=== PATIENT | male | born 1985 | race Two or more races ===

== ENCOUNTER 2020-06-26 16:18 | Emergency (ER) | payer MEDICAID, OTHER ==
[~2020-06-26] VITALS: Ht 165.1 cm; Wt 70.5 kg
[~2020-06-26 16:18] MED LIST: BENZ7GEL6; CLIN150C2 PO; DIVA-37 PO; DIVA-52; HALO50AM2 IM; IBUP-1984 PO; QUET-1 PO
[2020-06-26 16:48] VITALS: BP 108/53
== END 2020-06-26 18:25 | disposition home or self-care (01) ==
LOC: ER 16:18
DX: R42 Dizziness and giddiness (principal); I10 Essential (primary) hypertension; G89.29 Other chronic pain; F31.9 Bipolar disorder, unspecified; F20.9 Schizophrenia, unspecified; G47.30 Sleep apnea, unspecified; F15.90 Other stimulant use, unspecified, uncomplicated; Z60.2 Problems related to living alone; Z59.0 Homelessness; Z56.0 Unemployment, unspecified; Z79.899 Other long term (current) drug therapy
CPT/HCPCS: 99281

== ENCOUNTER 2020-07-31 05:59 | Emergency (ER) | payer MEDICAID ==
[~2020-07-31] VITALS: Ht 167.6 cm; Wt 75.0 kg
[2020-07-31 06:00] VITALS: BP 109/68
[2020-07-31] MEDS ORDERED: acetaminophen 325mg tablet PO ONE (06:50)
== END 2020-07-31 07:11 | disposition home or self-care (01) ==
LOC: ER 05:59
DX: M25.69 Stiffness of other specified joint, not elsewhere classified (principal); I10 Essential (primary) hypertension; G89.29 Other chronic pain; F31.9 Bipolar disorder, unspecified; F20.9 Schizophrenia, unspecified; F12.90 Cannabis use, unspecified, uncomplicated; F15.90 Other stimulant use, unspecified, uncomplicated; F11.90 Opioid use, unspecified, uncomplicated; Z72.89 Other problems related to lifestyle; Z60.2 Problems related to living alone; Z59.0 Homelessness; Z56.0 Unemployment, unspecified; Z79.899 Other long term (current) drug therapy; Z79.2 Long term (current) use of antibiotics
CPT/HCPCS: 99282; 99283

== ENCOUNTER 2020-08-01 03:24 | Emergency (ER) | payer MEDICAID ==
[~2020-08-01] VITALS: Ht 167.6 cm; Wt 72.7 kg
[2020-08-01 03:27] VITALS: BP 107/46
--- NOTE | 2020-08-01 04:19 | NUR ---
Dylan salazar in [facility] - 08/01/20 at 0419 by GENEVIEVE he is arguing with the MD about him being homeless, it is cold out
== END 2020-08-01 04:27 | disposition home or self-care (01) ==
LOC: ER 03:25
DX: S00.81XA Abrasion of other part of head, initial encounter (principal); I10 Essential (primary) hypertension; G89.29 Other chronic pain; F31.9 Bipolar disorder, unspecified; F20.9 Schizophrenia, unspecified; F12.90 Cannabis use, unspecified, uncomplicated; F15.90 Other stimulant use, unspecified, uncomplicated; F11.90 Opioid use, unspecified, uncomplicated; Z72.89 Other problems related to lifestyle; Z60.2 Problems related to living alone; Z56.0 Unemployment, unspecified; Z59.0 Homelessness; Z79.2 Long term (current) use of antibiotics; Z79.899 Other long term (current) drug therapy; X58.XXXA Exposure to other specified factors, initial encounter; Y93.89 Activity, other specified; Y92.89 Other specified places as the place of occurrence of the external cause; Y99.8 Other external cause status
CPT/HCPCS: 99281

== ENCOUNTER 2020-08-30 13:39 | Emergency (ER) | payer MEDICAID ==
[~2020-08-30] VITALS: Ht 167.6 cm; Wt 75.0 kg
[2020-08-30 14:29] VITALS: BP 137/76
== END 2020-08-30 14:37 | disposition home or self-care (01) ==
LOC: ER 13:39
DX: Z20.828 Contact with and (suspected) exposure to other viral communicable diseases (principal); I10 Essential (primary) hypertension; G89.29 Other chronic pain; F31.9 Bipolar disorder, unspecified; F20.9 Schizophrenia, unspecified; F12.90 Cannabis use, unspecified, uncomplicated; F15.90 Other stimulant use, unspecified, uncomplicated; F11.90 Opioid use, unspecified, uncomplicated; Z72.89 Other problems related to lifestyle; Z60.2 Problems related to living alone; Z56.0 Unemployment, unspecified; Z59.0 Homelessness; Z79.2 Long term (current) use of antibiotics; Z79.899 Other long term (current) drug therapy
CPT/HCPCS: 36415; 87635; 99283

== ENCOUNTER 2020-09-08 17:51 | Emergency (ER) | payer MEDICAID ==
[~2020-09-08] VITALS: Ht 167.6 cm; Wt 71.3 kg
[2020-09-08 17:59] VITALS: BP 131/60
== END 2020-09-08 19:20 | disposition home or self-care (01) ==
LOC: ER 17:52
DX: T69.022A Immersion foot, left foot, initial encounter (principal); T69.021A Immersion foot, right foot, initial encounter; I10 Essential (primary) hypertension; G89.29 Other chronic pain; M54.9 Dorsalgia, unspecified; F31.9 Bipolar disorder, unspecified; F20.9 Schizophrenia, unspecified; F17.200 Nicotine dependence, unspecified, uncomplicated; F12.10 Cannabis abuse, uncomplicated; F15.10 Other stimulant abuse, uncomplicated; Z56.0 Unemployment, unspecified; Z59.0 Homelessness; Z79.899 Other long term (current) drug therapy
CPT/HCPCS: 99281; 99283

== ENCOUNTER 2020-09-15 12:20 | Emergency (ER) | payer MEDICAID ==
[~2020-09-15] VITALS: Ht 167.6 cm; Wt 75.0 kg
[2020-09-15 14:37] VITALS: BP 141/64
== END 2020-09-15 14:47 | disposition home or self-care (01) ==
LOC: ER 12:20
DX: F15.10 Other stimulant abuse, uncomplicated (principal); F10.10 Alcohol abuse, uncomplicated; I10 Essential (primary) hypertension; G89.29 Other chronic pain; G47.30 Sleep apnea, unspecified; F12.90 Cannabis use, unspecified, uncomplicated; Z56.0 Unemployment, unspecified; Z59.0 Homelessness; Z72.89 Other problems related to lifestyle; Z79.2 Long term (current) use of antibiotics; Z79.899 Other long term (current) drug therapy
CPT/HCPCS: 36415; 84484; 93005; 99284

== ENCOUNTER 2020-10-07 12:14 | Inpatient (IN) | payer MEDICAID ==
[~2020-10-07] VITALS: Ht 167.6 cm; Wt 68.0 kg
[2020-10-07] VITALS (10 sets, daily range): BP systolic 109–164; BP diastolic 69–107
[2020-10-07] MEDS ORDERED: morphine 4 MG/ML inj SYRINge IV STA (12:36)
[2020-10-07] MEDS ORDERED: morphine 4 MG/ML inj SYRINge ONE (12:37)
[2020-10-07] MEDS ORDERED: ondansetron/PF 4mg/2ml inj IV STA (12:38)
[2020-10-07] MEDS ORDERED: TETanus/Pertussis (Acell)/Diphther VAC/PF (Tdap-Adult) 0.5ml syringe IMVAC ONE (12:45)
[2020-10-07] MEDS ORDERED: normal saline 1000ML IV soln IVB ONE (12:45)
[2020-10-07] MEDS ORDERED: ceFAZolin 1GM/D5W- ADD-VANTAGE 50 ML IV ONE (12:45)
[2020-10-07] MEDS ORDERED: ceFAZolin/D5W- 1GM premix 50 ML IV ONE (12:50)
--- NOTE | 2020-10-07 12:54 | NUR ---
pt to ct.
[2020-10-07 13:01] LABS: BASOPHILS # (AUTO) 0.1 X10'3 (0-0.2); BASOPHILS % (AUTO) 0.7 % (0-1); EOSINOPHILS # (AUTO) 0.1 X10'3 (0-0.9); EOSINOPHILS % (AUTO) 1.3 % (0-6); HEMATOCRIT 38.4 % (42.0-52.0); LYMPHOCYTES # (AUTO) 2.9 X10'3 (1.1-4.8); LYMPHOCYTES % (AUTO) 35.8 % (21-51); MEAN CORPUSCULAR HEMOGLOBIN 33.8 PG (27.0-31.0); MEAN CORPUSCULAR HGB CONC 33.8 g/dL (33.0-36.5); MEAN PLATELET VOLUME 7.5 FL (7.4-10.4); MONOCYTES # (AUTO) 0.6 X10'3 (0-0.9); MONOCYTES % (AUTO) 7.2 % (2-12); NEUTROPHILS # (AUTO) 4.4 X10'3 (1.8-7.7); PLATELET COUNT 267 X10'3 (140-440); RED BLOOD COUNT 3.84 X10'6 (4.70-6.10); RED CELL DISTRIBUTION WIDTH 13.2 % (11.5-14.5); WHITE BLOOD COUNT 8.1 X10'3 (4.5-11.0)
[2020-10-07 13:08] LABS: PARTIAL THROMBOPLASTIN TIME 25 SECONDS (22-32)
[2020-10-07 13:10] LABS: ALANINE AMINOTRANSFERASE 32 U/L (12-78); ALBUMIN 3.5 G/DL (3.4-5.0); ALKALINE PHOSPHATASE 97 IU/L (46-116); ANION GAP 9 (8-16); ASPARTATE AMINO TRANSFERASE 30 U/L (10-37); BILIRUBIN,TOTAL 0.3 MG/DL (0.1-1.0); BLOOD UREA NITROGEN 18 MG/DL (7-18); BUN/CREATININE RATIO 19.1 (5.4-32.0); CALCIUM 8.7 MG/DL (8.5-10.1); CHLORIDE 106 MMOL/L (99-107); CREATININE 0.94 MG/DL (0.60-1.10); GLUCOSE 125 MG/DL (70-104); POTASSIUM 3.7 MMOL/L (3.5-5.1); SODIUM 142 MMOL/L (135-145); TOTAL PROTEIN 7.1 G/DL (6.4-8.2); eGFR > 90 ML/MIN
[2020-10-07] MEDS ORDERED: vancomycin/NS 1 GM ADD-VANTAGE 250 ML IV ONE (13:10)
[2020-10-07] MEDS ORDERED: etomidate 2mg/ml inj. IV ONE (13:10)
[2020-10-07 13:11] LABS: ETHANOL < 0.010 GM/DL (0.0-0.010)
--- NOTE | 2020-10-07 14:43 | NUR ---
Pt. refused TDaP due to "I had that shot this year already"
[2020-10-07] MEDS ORDERED: acetaminophen 325mg tablet PO PRN (15:00)
[2020-10-07] MEDS ORDERED: potassium Cl 20 mEq SR tablet PO PRN ×2 (15:00)
[2020-10-07] MEDS ORDERED: potassium Cl 40MEQ/1/2NS 520ml 520 ML IV PRN ×2 (15:00)
[2020-10-07] MEDS ORDERED: mag hydrox/Alum hydrox/simeth 30ml oral suspension PO PRN (15:00)
[2020-10-07] MEDS ORDERED: magnesium 2GM in 50ml NS 50 ML IV PRN (15:00)
[2020-10-07] MEDS ORDERED: magnesium 4gm in 100ml NS 100 ML IV PRN (15:00)
[2020-10-07] MEDS ORDERED: magnesium hydroxide 30ml (MOM) UD suspension PO PRN (15:00)
[2020-10-07] MEDS ORDERED: ondansetron/PF 4mg/2ml inj IV PRN ×2 (15:00→20:30)
--- NOTE | 2020-10-07 15:19 | NUR ---
Pt. is requesting feng catheter not be placed until he is getting ready to go to surgery. Pt. is able to use urinal without excessive motion of his injured leg.
[2020-10-07 15:33] LABS: CLARITY,URINE CLEAR (Clear); COLOR,URINE YELLOW (Yellow); GLUCOSE, URINE NEGATIVE (Neg); KETONES,URINE NEGATIVE (Neg); LEUKOCYTE ESTERASE ,URINE NEGATIVE (Neg); NITRITES, URINE NEGATIVE (Neg); OCCULT BLOOD,URINE NEGATIVE (Neg); PROTEIN,URINE NEGATIVE (Neg); UROBILINOGEN,URINE 0.2 E.U/dL (0.2-1.0)
[2020-10-07] MEDS ORDERED: LIDOcaine Viscous 15ml cup MM PRN (15:35)
[2020-10-07 15:39] LABS: UA COLLECTION TYPE NON-SPECIFIED; URINE AMPHETAMINE SCREEN NEGATIVE (Neg); URINE BARBITUATE SCREEN NEGATIVE (Neg); URINE BENZODIAZEPINES SCREEN NEGATIVE (Neg); URINE CANNABINOID SCREEN POSITIVE (Neg); URINE COCAINE SCREEN NEGATIVE (Neg); URINE METHADONE SCREEN NEGATIVE (Neg); URINE OPIATE SCREEN POSITIVE (Neg); URINE PHENCYCLIDINE SCREEN NEGATIVE (Neg)
[2020-10-07] MEDS: LIDOcaine 2% 10ml TOPICAL JELLY (Urojet) MM ONE ×2 (15:43→16:05)
[2020-10-07] MEDS: morphine 2 MG/ML inj. syringe IV PRN (15:49)
[2020-10-07] MEDS ORDERED: haloperidol 5mg tablet PO PRN (15:50)
[2020-10-07] MEDS ORDERED: haloperidol lactate 5mg/ml inj IM PRN (15:50)
[2020-10-07] MEDS: normal saline 1000ml 1,000 ML IV SCH (15:55)
[2020-10-07] MEDS ORDERED: VANCOmycin 1250MG/NS 250ml Bag 250 ML IV SCH (16:00)
[2020-10-07] MEDS ORDERED: NO HOME MEDS (16:05)
[2020-10-07] MEDS ORDERED: hydrALAZINE 20mg/ml inj. IV PRN (16:15)
[2020-10-07] MEDS ORDERED: ziprasidone IM 20mg inj **IM only IM PRN (16:15)
--- NOTE | 2020-10-07 16:50 | NUR ---
MICHELLE CATH PLACED,PATIENT TOLERATED WELL.URINE SENT TO THE LAB.
[2020-10-07] MEDS: nicotine 21mg patch - 24 hr TD SCH (16:56)
--- NOTE | 2020-10-07 17:46 | NUR ---
CALLED OR SPOKE TO RENETTA SIMONS,PATIENT GOING TO SURGERY TONIGHT BUT NO SCHEDULED TIME YET.
[2020-10-07] MEDS: LORazepam 2 mg/ml vial IV PRN (17:59)
--- NOTE | 2020-10-07 18:34 | NUR ---
Received report from KRISTYN Edwards. Awaiting arrival to the floor.
[2020-10-07] MEDS ORDERED: famotidine/PF 10 mg/ml inj IV ONE (18:50)
[2020-10-07] MEDS ORDERED: BUPIVAcaine/PF 2.5 mg/ml (0.25%) 30ml vial ONE (19:33)
--- NOTE | 2020-10-07 19:43 | NUR ---
Taken to OR
[2020-10-07] MEDS: K and/or MAG REPLACEMENT MC SCH (20:00)
[2020-10-07] MEDS ORDERED: sevoflurane 250ml liquid IH ONE (20:28)
[2020-10-07] MEDS ORDERED: morphine 4 MG/ML inj SYRINge IV PRN (20:30)
[2020-10-07] MEDS ORDERED: meperidine/PF 25mg/ml syringe IV PRN ×3 (20:30)
[2020-10-07] MEDS ORDERED: ringers solution, lacted 1,000 ML IV SCH (20:30)
[2020-10-07] MEDS ORDERED: proCHLORperazine 10 MG/2 ml inj IV PRN (20:30)
[2020-10-07] MEDS ORDERED: morphine 2 MG/ML inj. syringe IV PRN (20:30)
[2020-10-07] MEDS ORDERED: propofol inj 20 ML IV ONE (20:34)
[2020-10-07] MEDS ORDERED: fentaNYL/PF 50MCG/1 ML 2ML syringe ONE ×2 (20:34→21:05)
[2020-10-07] MEDS ORDERED: vancomycin 1,000mg inj ONE (21:41)
[2020-10-07] MEDS ORDERED: bacitracin 15gm ointment TP ONE (21:59)
--- NOTE | 2020-10-07 22:20 | NUR ---
Received from OR via BED, accompanied by Anesthesiologist DR CAMARENA and report given by Anesthesiolgist. PATIENT SEDATED, NO S/S OF PAIN, V/S WNL, NEUROVASCULAR CHECKS INTACT, 20G PIV LUE, SCD ON, DRESSING SPLINT CAST TO LEFT ANKLE CDI ELEVATED WITH ICEBAG APPLIED. F/C DRAINING CLEAR YELLOW URINE.
--- NOTE | 2020-10-07 22:34 | NUR ---
Received report from KRISTYN Nielson. Awaiting patient arrival to the floor
--- NOTE | 2020-10-07 23:00 | NUR ---
PATIENT SLEEPY WAKES UP BUT HAS DIFFICULTY FOCUSING AND QUICKLY TRYS TO GO BACK TO SLEEP, WHICH WAS HIS MENTATION PRIOR TO SURGERY AFTER COMING TO OR FROM ER WHERE HE WAS GIVEN PSYCH MEDS., NO S/S OF PAIN, V/S WNL, NEUROVASCULAR CHECKS INTACT, 20G PIV LUE, SCD ON, DRESSING SPLINT CAST TO LEFT ANKLE CDI ELEVATED WITH ICEBAG APPLIED. F/C DRAINING CLEAR YELLOW URINE. PATIENT TAKEN TO 358A WITH ALL BELONGINGS AND HOOKED UP TO MONITORS IN ROOM AND REPORT GIVEN TO RN WHO HAS TAKEN OVER PATIENT CARE. BED LOW, CALL LIGHT IN REACH, VSS, DRESSINGS CDI.
[2020-10-07] MEDS: piperacillin/tazo 4.5gm/100ml 100 ML IV SCH (23:12)
[2020-10-07] MEDS: enoxaparin 40mg/0.4ml syringe SQ SCH (23:12)
[2020-10-07] MEDS: ceFAZolin/D5W- 1GM premix 50 ML IV SCH (23:31)
[2020-10-08] VITALS (8 sets, daily range): BP systolic 126–159; BP diastolic 81–101
[2020-10-08] MEDS: morphine 2 MG/ML inj. syringe IV PRN ×4 (00:21→17:11)
[2020-10-08] MEDS: normal saline 1000ml 1,000 ML IV SCH ×3 (02:01→20:08)
--- NOTE | 2020-10-08 02:28 | NUR ---
Patient refused blood glucose check at this time.
[2020-10-08] MEDS: LORazepam 2 mg/ml vial IV PRN (02:55)
[2020-10-08] MEDS: VANCOmycin 1250MG/NS 250ml Bag 250 ML IV SCH ×2 (03:59→14:36)
[2020-10-08 06:38] LABS: BASOPHILS % (AUTO) 0.3 % (0-1); EOSINOPHILS % (AUTO) 0.1 % (0-6); HEMATOCRIT 39.2 % (42.0-52.0); HEMOGLOBIN 13.3 g/dl (14.0-17.9); LYMPHOCYTES # (AUTO) 1.9 X10'3 (1.1-4.8); LYMPHOCYTES % (AUTO) 18.5 % (21-51); MEAN CORPUSCULAR HEMOGLOBIN 34.2 PG (27.0-31.0); MEAN CORPUSCULAR VOLUME 100.7 FL (78-98); MEAN PLATELET VOLUME 7.6 FL (7.4-10.4); MONOCYTES # (AUTO) 0.8 X10'3 (0-0.9); MONOCYTES % (AUTO) 7.4 % (2-12); NEUTROPHILS # (AUTO) 7.7 X10'3 (1.8-7.7); NEUTROPHILS % (AUTO) 73.7 % (42-75); PLATELET COUNT 237 X10'3 (140-440); RED BLOOD COUNT 3.89 X10'6 (4.70-6.10); RED CELL DISTRIBUTION WIDTH 13.5 % (11.5-14.5); WHITE BLOOD COUNT 10.4 X10'3 (4.5-11.0)
--- NOTE | 2020-10-08 06:41 | NUR ---
Problems reprioritized. Patient report given, questions answered & plan of care reviewed with KRISTYN Sterling.
[2020-10-08 07:11] LABS: ALANINE AMINOTRANSFERASE 30 U/L (12-78); ALBUMIN 3.5 G/DL (3.4-5.0); ALBUMIN/GLOBULIN RATIO 0.9 (1.1-1.5); ALKALINE PHOSPHATASE 80 IU/L (46-116); AMYLASE 67 U/L (25-115); ANION GAP 9 (8-16); ASPARTATE AMINO TRANSFERASE 23 U/L (10-37); BILIRUBIN,TOTAL 0.6 MG/DL (0.1-1.0); BLOOD UREA NITROGEN 6 MG/DL (7-18); BUN/CREATININE RATIO 8.1 (5.4-32.0); CALCIUM 8.5 MG/DL (8.5-10.1); CHLORIDE 100 MMOL/L (99-107); CREATININE 0.74 MG/DL (0.60-1.10); GLUCOSE 134 MG/DL (70-104); LIPASE < 50 U/L (73-393); MAGNESIUM 1.9 MG/DL (1.5-2.4); PHOSPHORUS 3.4 MG/DL (2.3-4.5); POTASSIUM 3.7 MMOL/L (3.5-5.1); SODIUM 135 MMOL/L (135-145); TOTAL CARBON DIOXIDE 25.6 MMOL/L (24-32); TOTAL PROTEIN 7.3 G/DL (6.4-8.2); eGFR > 90 ML/MIN
[2020-10-08] MEDS ORDERED: vancomycin/NS 1 GM ADD-VANTAGE 250 ML IV SCH (08:00)
[2020-10-08] MEDS: K and/or MAG REPLACEMENT MC SCH ×2 (08:00→20:00)
[2020-10-08] MEDS: ceFAZolin/D5W- 1GM premix 50 ML IV SCH ×2 (11:13→17:10)
[2020-10-08] MEDS: thiamine 100mg tablet PO SCH (11:16)
[2020-10-08] MEDS: multivitamins, therapeutics tablet PO SCH (11:16)
[2020-10-08] MEDS: folic acid 1mg tablet PO SCH (11:17)
[2020-10-08] MEDS: nicotine 21mg patch - 24 hr TD SCH (11:18)
[2020-10-08] MEDS: piperacillin/tazo 4.5gm/100ml 100 ML IV SCH ×2 (11:20→20:08)
[2020-10-08] MEDS ORDERED: ondansetron 4mg rapidly disintigrating tab PO PRN (13:20)
--- NOTE | 2020-10-08 17:00 | NUR ---
UNABLE TO OBTAIN 1700 ACCUCHECK R/T OTHER PT. CARE AND NO STAFF SUPPORT.
--- NOTE | 2020-10-08 19:42 | NUR ---
GAVE REPORT TO VISHNU MARES RN
--- NOTE | 2020-10-08 19:43 | NUR ---
Patient in room [facility]. I have received report from ANDREI SIMONS and had the opportunity to ask questions and assume patient care.
[2020-10-08] MEDS: enoxaparin 40mg/0.4ml syringe SQ SCH (20:08)
[2020-10-08] MEDS: lactobacillus rhamnosus 10,000 MMU CELLS/CAPSULE PO SCH (20:09)
[2020-10-09] VITALS: BP 134/62
[2020-10-09] MEDS: LORazepam 2 mg/ml vial IV PRN (00:27)
[2020-10-09] MEDS: ceFAZolin/D5W- 1GM premix 50 ML IV SCH ×3 (00:27→17:27)
[2020-10-09] MEDS: VANCOmycin 1250MG/NS 250ml Bag 250 ML IV SCH ×2 (03:30→14:50)
[2020-10-09] MEDS: morphine 2 MG/ML inj. syringe IV PRN ×2 (05:18→19:50)
--- NOTE | 2020-10-09 06:29 | NUR ---
Problems reprioritized. Patient report given, questions answered & plan of care reviewed with ANDREI SIMONS.
[2020-10-09] MEDS: lactobacillus rhamnosus 10,000 MMU CELLS/CAPSULE PO SCH ×2 (07:34→19:40)
[2020-10-09] MEDS: normal saline 1000ml 1,000 ML IV SCH (07:34)
[2020-10-09] MEDS: multivitamins, therapeutics tablet PO SCH (07:34)
[2020-10-09 07:35] LABS: BASOPHILS % (AUTO) 0.5 % (0-1); EOSINOPHILS % (AUTO) 0.4 % (0-6); HEMATOCRIT 38.2 % (42.0-52.0); HEMOGLOBIN 13.1 g/dl (14.0-17.9); LYMPHOCYTES # (AUTO) 2.2 X10'3 (1.1-4.8); LYMPHOCYTES % (AUTO) 24.9 % (21-51); MEAN CORPUSCULAR HEMOGLOBIN 34.2 PG (27.0-31.0); MEAN CORPUSCULAR HGB CONC 34.3 g/dL (33.0-36.5); MEAN CORPUSCULAR VOLUME 99.7 FL (78-98); MEAN PLATELET VOLUME 7.5 FL (7.4-10.4); MONOCYTES # (AUTO) 0.9 X10'3 (0-0.9); MONOCYTES % (AUTO) 9.7 % (2-12); NEUTROPHILS # (AUTO) 5.8 X10'3 (1.8-7.7); NEUTROPHILS % (AUTO) 64.5 % (42-75); PLATELET COUNT 240 X10'3 (140-440); RED BLOOD COUNT 3.83 X10'6 (4.70-6.10); RED CELL DISTRIBUTION WIDTH 13.5 % (11.5-14.5); WHITE BLOOD COUNT 8.9 X10'3 (4.5-11.0)
[2020-10-09] MEDS: folic acid 1mg tablet PO SCH (07:35)
[2020-10-09] MEDS: K and/or MAG REPLACEMENT MC SCH ×2 (07:36→20:00)
[2020-10-09] MEDS: nicotine 21mg patch - 24 hr TD SCH (07:36)
[2020-10-09 07:49] LABS: ALANINE AMINOTRANSFERASE 22 U/L (12-78); ALBUMIN 3.3 G/DL (3.4-5.0); ALBUMIN/GLOBULIN RATIO 0.8 (1.1-1.5); ALKALINE PHOSPHATASE 72 IU/L (46-116); AMYLASE 63 U/L (25-115); ANION GAP 8 (8-16); ASPARTATE AMINO TRANSFERASE 13 U/L (10-37); BILIRUBIN,TOTAL 0.7 MG/DL (0.1-1.0); BLOOD UREA NITROGEN 9 MG/DL (7-18); BUN/CREATININE RATIO 12.2 (5.4-32.0); CALCIUM 8.4 MG/DL (8.5-10.1); CHLORIDE 103 MMOL/L (99-107); CREATININE 0.74 MG/DL (0.60-1.10); GLUCOSE 108 MG/DL (70-104); LIPASE 63 U/L (73-393); MAGNESIUM 2.2 MG/DL (1.5-2.4); PHOSPHORUS 2.7 MG/DL (2.3-4.5); SODIUM 137 MMOL/L (135-145); TOTAL CARBON DIOXIDE 25.7 MMOL/L (24-32); TOTAL PROTEIN 7.7 G/DL (6.4-8.2); eGFR > 90 ML/MIN
[2020-10-09 08:00] VITALS: BP_SYST 128; BP_SYST 136; BP_DIAS 61; BP_DIAS 78
[2020-10-09] MEDS: thiamine 100mg tablet PO SCH (09:10)
[2020-10-09] MEDS: piperacillin/tazo 4.5gm/100ml 100 ML IV SCH ×2 (09:10→19:45)
[2020-10-09 11:00] VITALS: BP 127/64
[2020-10-09] MEDS ORDERED: VANCOMYCIN LEVEL IV ONE (14:30)
[2020-10-09] MEDS ORDERED: LORazepam 2 mg/ml vial IV PRN (15:50)
--- NOTE | 2020-10-09 18:38 | NUR ---
Gave report to Lianna Yousif RN. Addendum: 10/09/20 at 1907 by Hallie Salazar RN Gave report to Lyn Nicholson RN.
--- NOTE | 2020-10-09 18:40 | NUR ---
Patient in room [facility]. I have received report from ANDREI SIMONS and had the opportunity to ask questions and assume patient care.
[2020-10-09] MEDS: LORazepam 1 MG tablet PO PRN (19:41)
[2020-10-09] MEDS: enoxaparin 40mg/0.4ml syringe SQ SCH (19:43)
[2020-10-09 20:00] VITALS: BP 134/77
[2020-10-09] MEDS ORDERED: tetanus & diphtheria toxoid (Td) vaccine 0.5ml IMVAC ONE (21:30)
[2020-10-09] MEDS ORDERED: VANCOmycin 1250MG/NS 250ml Bag 250 ML IV SCH (23:00)
[2020-10-09 23:02] LABS: HIV ANTIBODY 1&2 RAPID NON-REACTIVE (Neg)
[2020-10-10] VITALS: BP 124/70
--- NOTE | 2020-10-10 00:04 | NUR ---
PATIENT REFUSED LOVENOX INJECTION EARLIER SAID HE DON'T WANT ANY INJECTION. ALSO REFUSED TO HAVE TETANUS/DIPHTHERIA SHOT AT THIS TIME. WILL TRY AGAIN TOMORROW.
[2020-10-10] MEDS: LORazepam 1 MG tablet PO PRN (00:28)
[2020-10-10] MEDS: ciprofloxacin 250mg tablet PO SCH ×2 (00:28→10:40)
--- NOTE | 2020-10-10 06:31 | NUR ---
Problems reprioritized. Patient report given, questions answered & plan of care reviewed with SAM SIMONS.
[2020-10-10 07:42] LABS: BASOPHILS % (AUTO) 0.4 % (0-1); EOSINOPHILS # (AUTO) 0.1 X10'3 (0-0.9); HEMATOCRIT 35.6 % (42.0-52.0); HEMOGLOBIN 12.2 g/dl (14.0-17.9); LYMPHOCYTES # (AUTO) 1.8 X10'3 (1.1-4.8); MEAN CORPUSCULAR HEMOGLOBIN 34.2 PG (27.0-31.0); MEAN CORPUSCULAR HGB CONC 34.2 g/dL (33.0-36.5); MEAN PLATELET VOLUME 7.4 FL (7.4-10.4); MONOCYTES # (AUTO) 0.9 X10'3 (0-0.9); MONOCYTES % (AUTO) 10.6 % (2-12); NEUTROPHILS # (AUTO) 5.6 X10'3 (1.8-7.7); PLATELET COUNT 247 X10'3 (140-440); RED BLOOD COUNT 3.56 X10'6 (4.70-6.10); RED CELL DISTRIBUTION WIDTH 13.4 % (11.5-14.5); WHITE BLOOD COUNT 8.4 X10'3 (4.5-11.0)
[2020-10-10 07:45] VITALS: BP 120/84
[2020-10-10] MEDS: K and/or MAG REPLACEMENT MC SCH (08:00)
[2020-10-10 08:04] LABS: ALANINE AMINOTRANSFERASE 27 U/L (12-78); ALBUMIN 2.9 G/DL (3.4-5.0); ALBUMIN/GLOBULIN RATIO 0.6 (1.1-1.5); ALKALINE PHOSPHATASE 67 IU/L (46-116); AMYLASE 91 U/L (25-115); ANION GAP 8 (8-16); ASPARTATE AMINO TRANSFERASE 15 U/L (10-37); BILIRUBIN,TOTAL 0.6 MG/DL (0.1-1.0); BLOOD UREA NITROGEN 7 MG/DL (7-18); BUN/CREATININE RATIO 9.5 (5.4-32.0); CALCIUM 8.6 MG/DL (8.5-10.1); CHLORIDE 103 MMOL/L (99-107); CREATININE 0.74 MG/DL (0.60-1.10); GLUCOSE 117 MG/DL (70-104); LIPASE 119 U/L (73-393); MAGNESIUM 2.2 MG/DL (1.5-2.4); PHOSPHORUS 3.3 MG/DL (2.3-4.5); POTASSIUM 3.9 MMOL/L (3.5-5.1); SODIUM 137 MMOL/L (135-145); TOTAL CARBON DIOXIDE 26.3 MMOL/L (24-32); TOTAL PROTEIN 7.4 G/DL (6.4-8.2); eGFR > 90 ML/MIN
[2020-10-10] MEDS: folic acid 1mg tablet PO SCH (08:09)
[2020-10-10] MEDS: thiamine 100mg tablet PO SCH (08:09)
[2020-10-10] MEDS: lactobacillus rhamnosus 10,000 MMU CELLS/CAPSULE PO SCH (08:09)
[2020-10-10] MEDS: multivitamins, therapeutics tablet PO SCH (08:09)
[2020-10-10] MEDS: nicotine 21mg patch - 24 hr TD SCH (08:11)
[2020-10-10] MEDS ORDERED: DOXYCYCLINE 100MG CAPSULE PO SCH (08:30)
[2020-10-10] MEDS ORDERED: tetanus & diphtheria toxoid (Td) vaccine 0.5ml IMVAC ONE (10:00)
[2020-10-10] MEDS ORDERED: ziprasidone 20mg capsule PO ONE (10:45)
--- NOTE | 2020-10-10 10:53 | NUR ---
MICHELLE CATHETER DC'D. PATIENT TOLERATED WELL.
--- NOTE | 2020-10-10 11:43 | NUR ---
PAGER ID: [phone] MESSAGE: Vidal WHITEA: PATIENT DOES NOT WANT TO TAKE THE GEODON WITHOUT COGENTIN. HE SAYS HE DOES 1MG COGENTIN EVERY TIME HE TAKES GEODON.. BILLY, SAM [id number]
[2020-10-10] MEDS ORDERED: benztropine 1mg tablet PO ONE (11:45)
[2020-10-10 12:15] VITALS: BP 118/67
[2020-10-10] MEDS ORDERED: VANCOMYCIN LEVEL IV ONE (14:30)
[2020-10-10] MEDS ORDERED: CIPR250T4 PO (14:59)
[2020-10-10] MEDS ORDERED: DOXY-224 PO (14:59)
[2020-10-10] MEDS ORDERED: ZIPR20CA12 PO (14:59)
[2020-10-10] MEDS ORDERED: NICO-687 TD (15:00)
[2020-10-10] MEDS ORDERED: BENZ1TAB7 PO (15:00)
--- NOTE | 2020-10-10 15:19 | NUR ---
PAGER ID: [phone] MESSAGE: Vidal iFtchA : Ortho recommendations in notes suggest Aspirin 325 mg daily x4 weeks for DVT prophylaxis follow-up with Dr. Hughes in 2 weeks. would you like to add this? thanks, fredy [phone]
--- NOTE | 2020-10-10 16:38 | NUR ---
patient stable and appropriate for discharge home with [facility] transportation to his [facility] in [place]. IV removed. All belongings taken from room. Crutches sent with patient. New prescription sent with patient. All discharge instructions and education given and reviewed with patient. He is aware of next due doses on all medications. All questions answered.
[2020-10-10] MEDS ORDERED: ziprasidone 20mg capsule PO SCH (20:00)
[2020-10-10] MEDS ORDERED: benztropine 1mg tablet PO SCH (20:00)
[2020-10-11 12:17] LABS: HBSAG SCREEN Negative (Negative); HEP A AB, IGM Negative (Negative); HEPATITIS C ANTIBODY <0.1 s/co ratio (0.0-0.9)
[2020-10-11] MEDS ORDERED: LORazepam 1 MG tablet PO PRN (15:50)
[2020-10-11] MEDS ORDERED: LORazepam 2 mg/ml vial IV PRN (15:50)
== END 2020-10-10 16:35 | disposition home or self-care (01) | DRG 313 ==
LOC: ER 12:14 → ED HOLD 14:59 → SUR 3N 18:41
PROVIDERS: ADMIT Family Medicine; ATTEND Family Medicine
PROC: 0QSK04Z Reposition Left Fibula with Internal Fixation Device, Open Approach (ICD-10-PCS; principal; 2020-10-07 20:28)
DX: S82.852C Displaced trimalleolar fracture of left lower leg, initial encounter for open fracture type IIIA, IIIB, or IIIC (principal); F17.210 Nicotine dependence, cigarettes, uncomplicated; F20.9 Schizophrenia, unspecified; F31.9 Bipolar disorder, unspecified; I10 Essential (primary) hypertension; S93.05XA Dislocation of left ankle joint, initial encounter; Z20.822 Contact with and (suspected) exposure to COVID-19; F19.10 Other psychoactive substance abuse, uncomplicated; G47.33 Obstructive sleep apnea (adult) (pediatric); G89.29 Other chronic pain; M54.9 Dorsalgia, unspecified; F10.10 Alcohol abuse, uncomplicated; Z59.0 Homelessness; Z83.3 Family history of diabetes mellitus; Z79.899 Other long term (current) drug therapy; Y93.89 Activity, other specified; Y92.89 Other specified places as the place of occurrence of the external cause; Y99.8 Other external cause status; V19.9XXA Pedal cyclist (driver) (passenger) injured in unspecified traffic accident, initial encounter
CPT/HCPCS: 36415; 70450; 71045; 72125; 73600; 80053; 80074; 80202; 80305; 80320; 81003; 82150; 82948; 83690; 83735; 84100; 85025; 85610; 85730; 86703; 86885; 86900; 86901; 87081; 87635; 90715; 93005; 94799; 97110; 97161; 97530; 99285; A4215; A4618; A6222; A6449; A7000; C1713; G0378; J0690; J1650; J2060; J2270; J2405; J2543; J2704; J3010; J3370; J3486; J3490; J7030; J7120

== ENCOUNTER 2024-03-31 05:30 | Emergency (ER) | payer MEDICAID ==
[~2024-03-31] VITALS: Ht 165.1 cm; Wt 75.0 kg
[~2024-03-31 05:30] MED LIST changes: +BENZ1TAB78 PO; -BENZ7GEL6; +CIPR250T4 PO; -CLIN150C2 PO; -DIVA-37 PO; -DIVA-52; +DOXY-224 PO; -HALO50AM2 IM; -IBUP-1984 PO; +NICO-687 TD; -QUET-1 PO; +ZIPR20CA12 PO
[2024-03-31 06:18] VITALS: BP 107/60; PULSE 86; RESP 20; TEMP 98.8; O2SAT 96
== END 2024-03-31 06:53 | disposition home or self-care (01) ==
LOC: ER 05:31
DX: M79.671 Pain in right foot (principal); I10 Essential (primary) hypertension; G47.39 Other sleep apnea; G89.29 Other chronic pain; M54.9 Dorsalgia, unspecified; F31.9 Bipolar disorder, unspecified; F20.9 Schizophrenia, unspecified; F12.90 Cannabis use, unspecified, uncomplicated; F15.90 Other stimulant use, unspecified, uncomplicated; F11.90 Opioid use, unspecified, uncomplicated; Z60.2 Problems related to living alone; Z56.0 Unemployment, unspecified; Z59.00 Homelessness unspecified; Z79.2 Long term (current) use of antibiotics; Z79.899 Other long term (current) drug therapy; Z72.89 Other problems related to lifestyle
CPT/HCPCS: 73630; 99283